=== PATIENT | female | born 2000 | race Caucasian/White ===

== ENCOUNTER 2021-06-19 16:26 | Emergency (ER) | payer OTHER ==
[~2021-06-19] VITALS: Ht 165.1 cm; Wt 82.6 kg
[2021-06-19 16:43] LABS: BASOPHIL 0.3 % (0-2); EOSINOPHIL 1.7 % (0-5); HCT 43.7 % (37.0-47.0); HGB 14.8 g/dl (12.5-16.0); LYMPHOCYTE 46.5 % (15-48); MCH 29.2 pg (25.0-31.0); MCHC 33.9 g/dL (32.0-36.0); MCV 86.4 fL (78.0-100.0); MONOCYTE 4.9 % (0-12); MPV 11.3 fL (6.0-9.5); NEUTROPHIL 46.3 % (41-80); NRBC 0; PLT 199 K/uL (150-400); RBC 5.06 M/uL (4.20-5.40); WBC 10.1 K/uL (4.0-10.5)
[2021-06-19 17:01] LABS: ALBUMIN 3.9 g/dL (3.4-5.0); BILIRUBIN - TOTAL 0.8 mg/dL (0.2-1.0); BUN/CREAT RATIO (CALC) 6.6 RATIO; CREATININE 0.76 mg/dL (0.51-0.95); GLOBULIN (CALCULATION) 2.6 g/dL; POTASSIUM 3.6 mmol/L (3.5-5.1); TOTAL PROTEIN 6.5 g/dL (6.4-8.2)
== END 2021-06-19 18:35 | disposition home or self-care (01) ==
LOC: FER 16:26
PROVIDERS: Emergency Medicine
DX: R55 Syncope and collapse (principal)
CPT/HCPCS: 36415; 80053; 84484; 85025; 85379; 93005; J7030